=== PATIENT | female | born 1995 | race Caucasian/White ===

== ENCOUNTER 2017-09-14 11:16 | Emergency (ER) | payer BC ==
--- NOTE | 2017-09-14 14:00 | UC ---
Respiratory Complaint HPI - HPI Summary HPI Summary: Pt presents with c/o productive cough, wheezing, chills and generalized malaise X 1 week. - History of Current Complaint Chief Complaint: UCRespiratory Stated Complaint: COUGH,STUFFY NOSE Time Seen by Provider: 09/14/17 13:53 Hx Obtained From: Patient Hx Last Menstrual Period: 09/01/17 ?: No Onset/Duration: Gradual Onset, Lasting Days, Still Present Timing: Constant Severity Initially: Mild Severity Currently: Mild Character: Cough: Productive - yellow Associated Signs And Symptoms: Positive: Chills, Wheezing, Nasal Congestion Related History: Seasonal Allergies - Risk Factors Pulmonary Embolism Risk Factors: Negative Cardiac Risk Factors: Negative Pseudomonas Risk Factors: Negative Tuberculosis Risk Factors: Communal Living - Allergies/Home Medications Allergies/Adverse Reactions: Allergies Allergy/AdvReac Type Severity Reaction Status Date / Time No Known Allergies Allergy Verified 09/14/17 11:57 Home Medications: Home Medications Cetirizine HCl [Zyrtec Allergy 10 MG TAB] 10 mg PO 09/14/17 [History] Levonorgestrel & Eth Estradiol [Orsythia 0.1-20 mg-Mcg] 1 tab PO 09/14/17 [ History] Montelukast Sodium TAB* [Singulair 10 MG TAB*] 10 mg PO DAILY 09/14/17 [History Confirmed 09/14/17] PMH/Surg Hx/FS Hx/Imm Hx Previously Healthy: Yes - Surgical History Surgical History: None - Family History Known Family History: Positive: Cardiac Disease - Social History Occupation: Student Lives: Dormitory/Roommates Alcohol Use: None Substance Use Type: None Smoking Status (MU): Never Smoked Tobacco Have You Smoked in the Last Year: No Review of Systems Constitutional: Chills Skin: Negative Eyes: Negative ENT: Other - nasal congestion Respiratory: Cough Cardiovascular: Negative Gastrointestinal: Negative Genitourinary: Negative Motor: Negative Neurovascular: Negative Musculoskeletal: Negative Neurological: Negative Psychological: Negative Is Patient Immunocompromised?: No All Other Systems Reviewed And Are Negative: Yes Physical Exam Triage Information Reviewed: Yes Appearance: Well-Appearing Vital Signs: Initial Vital Signs Temp 98.2 F 09/14/17 11:54 Pulse 92 09/14/17 11:54 Resp 14 09/14/17 11:54 BP 116/66 09/14/17 11:54 Pulse Ox 100 09/14/17 11:54 Vital Signs Reviewed: Yes Eye Exam: Normal ENT Exam: Other ENT: Positive: Nasal congestion Dental Exam: Normal Neck exam: Normal Respiratory Exam: Other Respiratory: Positive: Wheezing - mild Cardiovascular Exam: Normal Musculoskeletal Exam: Normal Neurological Exam: Normal Psychological Exam: Normal Skin Exam: Normal UC Diagnostic Evaluation - Laboratory O2 Sat by Pulse Oximetry: 100 Respiratory Course/Dx - Differential Dx/Diagnosis Differential Diagnosis/HQI/PQRI: Bronchitis Provider Diagnoses: Bronchitis Discharge - Discharge Plan Condition: Stable Disposition: HOME Prescriptions: Azithromycin TAB* [Zithromax TAB (Z-SAL) 250 mg #6 tabs] 2 tab PO .TODAY, THEN 1 DAILY #1 sal Benzonatate CAP* [Tessalon 100 MG CAP*] 100 mg PO Q8H PRN #21 cap PRN Reason: Cough methylPREDNISolone TAB* [Medrol TAB*] 4 - 8 mg PO .SEE SAL #1 sal Patient Education Materials: Acute Bronchitis (ED) Referrals: [facility] [Outside] - If Needed
[2017-09-14 14:13] VITALS: BP 123/80
== END 2017-09-14 14:20 | disposition home or self-care (01) ==
LOC: UCCORT 11:16
DX: J40 Bronchitis, not specified as acute or chronic (principal)
CPT/HCPCS: 99202; G0463

== ENCOUNTER 2018-08-22 09:10 | Emergency (ER) | payer BC ==
[2018-08-22 10:02] VITALS: BP 118/83
--- NOTE | 2018-08-22 10:10 | UC ---
Throat Pain/Nasal Melo HPI - HPI Summary HPI Summary: Pt c/o nasal congestion, sinus pressure, cough, chills, malaise X 2 weeks. - History of Current Complaint Chief Complaint: UCRespiratory Stated Complaint: COUGH, CONGESTION, HEADACHE Time Seen by Provider: 08/22/18 09:58 Hx Obtained From: Patient Hx Last Menstrual Period: 07/27/18 ?: No Onset/Duration: Sudden Onset, Lasting Weeks, Still Present Severity: Moderate Pain Intensity: 4 Cough: None Associated Signs & Symptoms: Positive: Sinus Discomfort, Fever - subjective - Epiglottits Risk Factors Epiglottis Risk Factors: Negative - Allergies/Home Medications Allergies/Adverse Reactions: Allergies Allergy/AdvReac Type Severity Reaction Status Date / Time No Known Allergies Allergy Verified 08/22/18 10:02 PMH/Surg Hx/FS Hx/Imm Hx Previously Healthy: Yes Respiratory History: Asthma - Surgical History Surgical History: None - Family History Known Family History: Positive: Cardiac Disease - Social History 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 Lives: With Family Alcohol Use: None Substance Use Type: None Smoking Status (MU): Never Smoked Tobacco Have You Smoked in the Last Year: No - Immunization History Vaccination Up to Date: Yes Review of Systems Constitutional: Chills, Fatigue Skin: Negative Eyes: Negative ENT: Nasal Discharge, Sinus Congestion, Sinus Pain/Tenderness Respiratory: Cough Cardiovascular: Negative Gastrointestinal: Negative Genitourinary: Negative Motor: Negative Neurovascular: Negative Musculoskeletal: Negative Neurological: Headache Psychological: Negative Is Patient Immunocompromised?: No All Other Systems Reviewed And Are Negative: Yes Physical Exam Triage Information Reviewed: Yes Appearance: Ill-Appearing Vital Signs: Initial Vital Signs Temp 97 F 08/22/18 09:56 Pulse 78 08/22/18 09:56 Resp 14 08/22/18 09:56 BP 118/83 08/22/18 09:56 Pulse Ox 99 08/22/18 09:56 Vital Signs Reviewed: Yes Eye Exam: Normal ENT: Positive: Nasal congestion, Sinus tenderness Dental Exam: Normal Neck exam: Normal Respiratory Exam: Normal Cardiovascular Exam: Normal Musculoskeletal Exam: Normal Neurological Exam: Normal Psychological Exam: Normal Skin Exam: Normal Throat Pain/Nasal Course/Dx - Differential Dx/Diagnosis Differential Diagnosis/HQI/PQRI: Sinusitis, URI Provider Diagnoses: sinusitis Discharge - Sign-Out/Discharge Documenting (check all that apply): Patient Departure All imaging exams completed and their final reports reviewed: No Studies - Discharge Plan Condition: Stable Disposition: HOME Prescriptions: Albuterol HFA INHALER* [Ventolin HFA Inhaler*] 1 - 2 puff INH Q4H PRN #1 mdi PRN Reason: Cough Amoxicillin PO (*) [Amoxicillin 875 MG (*)] 875 mg PO Q12H #20 tab Benzonatate CAP* [Tessalon 100 MG CAP*] 100 mg PO Q8H PRN #30 cap PRN Reason: Cough predniSONE TAB* [Deltasone 20 MG TAB*] 20 mg PO DAILY #4 tab Patient Education Materials: Sinusitis (ED) Referrals: [facility] [Outside] - If Needed Non Staff,Doctor [Primary Care Provider] - - Billing Disposition and Condition Condition: STABLE Disposition: Home
== END 2018-08-22 10:20 | disposition home or self-care (01) ==
LOC: UCCORT 09:10
DX: J32.9 Chronic sinusitis, unspecified (principal)
CPT/HCPCS: 99212; G0463

== ENCOUNTER 2018-09-01 17:37 | Emergency (ER) | payer BC ==
[2018-09-01 17:52] VITALS: BP 141/73
--- NOTE | 2018-09-01 18:15 | UC ---
General HPI - HPI Summary HPI Summary: Patient presents accompanied by a friend. She is complaining of sore throat, cough, and stuffy nose with headache for the past 5 weeks. She was seen here on the of last month and treated with Augmentin twice daily for 10 days, Tessalon Perles, prednisone and an albuterol rescue inhaler. She returns because she feels her sinus congestion, pressure and headache is worse. She reports some subjective fever and chills last evening. She admits to occasional wheezing and shortness of breath; however, the actual lung symptoms have been improving. Patient's main concern is the ongoing sinus symptoms. She does have history of asthma and allergies. - History of Current Complaint Chief Complaint: UCRespiratory Stated Complaint: SORE THROAT/CONGESTION Time Seen by Provider: 09/01/18 17:47 Hx Obtained From: Patient Hx Last Menstrual Period: 08/26/18 Onset/Duration: Gradual Onset Timing: Constant Pain Intensity: 6 Associated Signs & Symptoms: Positive: Cough, Fever - subjective, Headache, SOB , Wheezing - Allergy/Home Medications Allergies/Adverse Reactions: Allergies Allergy/AdvReac Type Severity Reaction Status Date / Time No Known Allergies Allergy Verified 09/01/18 17:52 PMH/Surg Hx/FS Hx/Imm Hx - Additional Past Medical History Additional PMH: allergies Respiratory History: Asthma - Surgical History Surgical History: None - Family History Known Family History: Positive: Cardiac Disease - Social History Occupation: Student Lives: Dormitory/Roommates Alcohol Use: None Substance Use Type: None Smoking Status (MU): Never Smoked Tobacco Have You Smoked in the Last Year: No - Immunization History Vaccination Up to Date: Yes Review of Systems Constitutional: Fever, Chills Skin: Negative Eyes: Negative ENT: Sore Throat, Nasal Discharge, Sinus Congestion, Sinus Pain/Tenderness Respiratory: Shortness Of Breath, Cough Cardiovascular: Negative Gastrointestinal: Negative Genitourinary: Negative Motor: Negative Neurovascular: Negative Musculoskeletal: Negative Neurological: Headache Psychological: Negative Is Patient Immunocompromised?: No All Other Systems Reviewed And Are Negative: Yes Physical Exam Triage Information Reviewed: Yes Appearance: Well-Appearing Vital Signs: Initial Vital Signs Temp 97.7 F 09/01/18 17:47 Pulse 108 09/01/18 17:47 Resp 20 09/01/18 17:47 BP 141/73 09/01/18 17:47 Pulse Ox 98 09/01/18 17:47 Vital Signs Reviewed: Yes Eyes: Positive: Conjunctiva Clear ENT: Positive: Pharynx normal, Nasal congestion, TMs normal, Sinus tenderness. Negative: Nasal drainage Neck: Positive: Supple, Nontender, No Lymphadenopathy Respiratory: Positive: Lungs clear, Normal breath sounds, No respiratory distress, Other: - Bronchospastic cough Cardiovascular: Positive: RRR, No Murmur Abdomen Description: Positive: Nontender, No Organomegaly, Soft Bowel Sounds: Positive: Present Musculoskeletal: Positive: ROM Intact Neurological: Positive: Alert Psychological: Positive: Age Appropriate Behavior Skin Exam: Normal Diagnostics - Laboratory Diagnostic Studies Completed/Ordered: rapid strep=neg. Course/Dx - Course Course Of Treatment: non toxic. no concern for pneumonia but pt has an element of RAD(asthma) and failed sinus s/s's thus will tx with medrol dosepak, flonase and Doxycycline plus routine albuterol MDI. will suggest probiotic as well. Need for follow-up and recheck stressed as well. Patient was counseled about the rest of C. difficile colitis and others potential side effects from back-to- back antibiotic use. She is willing to take the risk. - Differential Dx - Multi-Symptom Provider Diagnoses: Sinusitis. Asthma flare. Discharge - Sign-Out/Discharge Documenting (check all that apply): Patient Departure All imaging exams completed and their final reports reviewed: No Studies - Discharge Plan Condition: Stable Disposition: HOME Prescriptions: DOXYcycline CAP(*) [DOXYcycline 100MG CAP(*)] 100 mg PO BID 7 Days #14 cap methylPREDNISolone [Medrol Dosepak 4 MG*] 0 mg PO .SEE SAL INSTRUCTION #1 tab Patient Education Materials: Asthma (ED), Sinusitis (ED) Referrals: [facility] [Outside] - 7 Days Additional Instructions: INCREASE THE ALBUTEROL INHALER TO 2 PUFFS EVERY 6 HOURS. START FLONASE NASAL SPRAY ROUTINELY PER LABEL. CONSIDER A PROBIOTIC DAILY SUCH CULTURELLE. - Billing Disposition and Condition Condition: STABLE Disposition: Home
== END 2018-09-01 18:35 | disposition home or self-care (01) ==
LOC: UCCORT 17:37
DX: J32.9 Chronic sinusitis, unspecified (principal); J45.909 Unspecified asthma, uncomplicated
CPT/HCPCS: 87651; 99212; G0463